=== PATIENT | male | born 1985 | race Caucasian/White ===

== ENCOUNTER 2021-04-20 12:30 | Emergency (ER) | payer MEDICAID ==
[~2021-04-20] VITALS: Ht 167.6 cm; Wt 64.2 kg
[~2021-04-20 12:30] MED LIST: LIDOcaine 5% patch TP ONE
[2021-04-20 12:40] VITALS: BP 154/94
[2021-04-20] MEDS ORDERED: ketorolac trometh. 30mg/ml inj. IM ONE (14:40)
[2021-04-20] MEDS ORDERED: CYCL-1 PO (14:42)
== END 2021-04-20 15:05 | disposition home or self-care (01) ==
LOC: ER 12:31
DX: M54.50 Low back pain, unspecified (principal); R42 Dizziness and giddiness; M25.551 Pain in right hip; M19.90 Unspecified osteoarthritis, unspecified site; F12.90 Cannabis use, unspecified, uncomplicated; Z79.899 Other long term (current) drug therapy
CPT/HCPCS: 96372; 99283; J1885

== ENCOUNTER 2022-03-06 15:17 | Emergency (ER) | payer MEDICAID ==
[~2022-03-06] VITALS: Ht 167.6 cm; Wt 59.0 kg
[~2022-03-06 15:17] MED LIST changes: +CYCL-1 PO; -LIDOcaine 5% patch TP ONE
[2022-03-06 15:32] VITALS: BP 150/112
== END 2022-03-06 20:10 | disposition left against medical advice (07) ==
LOC: ER 15:18
DX: M54.89 Other dorsalgia (principal); Z53.21 Procedure and treatment not carried out due to patient leaving prior to being seen by health care provider